=== PATIENT | male | born 1965 | race Caucasian/White ===

== ENCOUNTER 2018-11-05 11:39 | Inpatient (IN) | payer MEDICAID ==
[~2018-11-05] VITALS: Ht 175.3 cm; Wt 68.0 kg
[2018-11-05] MEDS ORDERED: QUET50TA PO (11:52)
[2018-11-05] MEDS ORDERED: GABA-531 PO (11:52)
[2018-11-05] MEDS ORDERED: SODIUM CHLORIDE 0.9% 1,000 ML IV ONE (13:09)
[2018-11-05] MEDS ORDERED: LORAZEPAM 2MG/ML CPJ IV STA (13:09)
[2018-11-05 13:26] LABS: BASOPHILS % 0.4 % (0.0-2.0); EOSINOPHILS % 1.2 % (0.0-5.0); HEMATOCRIT. 41.1 % (42.0-52.0); LYMPHOCYTES % 22.8 % (20.0-50.0); MEAN CORPUSCULAR HEMOGLOBIN 32.4 pg (28.0-32.0); MEAN CORPUSCULAR VOLUME 95.2 fL (80.0-94.0); MEAN PLATELET VOLUME 8.5 fl (7.4-10.4); NEUTROPHILS % 61.6 % (40.0-76.0); PLATELET 150 x1000/uL (130-400); RED BLOOD CELL COUNT 4.32 mill/uL (4.7-6.1); RED CELL DISTRIBUTION WIDTH 13.4 % (11.6-14.6)
[2018-11-05 13:32] LABS: CHLORIDE 105 mEq/L (98-107)
[2018-11-05 13:36] LABS: ETHANOL BLOOD < 10 mg/dL
[2018-11-05 13:50] LABS: CLARITY URINE CLEAR (CLEAR); COLOR URINE YELLOW (YELLOW); KETONES URINE TRACE (NEGATIVE); LEUKOCYTE ESTERASE URINE TRACE (NEGATIVE); NITRITE URINE NEGATIVE (NEGATIVE); OCCULT BLOOD URINE NEGATIVE (NEGATIVE); PROTEIN URINE NEGATIVE (NEGATIVE); SPECIFIC GRAVITY URINE 1.024 (1.005-1.030)
[2018-11-05 14:13] LABS: *AMPHETAMINES SCREEN URINE NEGATIVE (NEGATIVE); *BARBITURATES SCREEN URINE NEGATIVE (NEGATIVE); *BENZODIAZEPINES SCREEN URINE NEGATIVE (NEGATIVE); *COCAINE SCREEN URINE NEGATIVE (NEGATIVE); METHADONE URINE SCREEN NEGATIVE (NEGATIVE); OPIATES URINE SCREEN NEGATIVE (NEGATIVE)
[2018-11-05 14:14] LABS: CANNABINOID URINE SCREEN NEGATIVE (NEGATIVE); PHENCYCLIDINE URINE SCREEN NEGATIVE (NEGATIVE)
[2018-11-05] MEDS ORDERED: FOLIC ACID 1 MG, THIAMINE HCL 100 MG, MVI, ADULT NO.1 10 ML in DEXTROSE 5% WATER 1,000 ML IV ONE ×4 (14:45)
[2018-11-05] MEDS ORDERED: LORAZEPAM 2MG/ML CPJ IV ONE (14:45)
[2018-11-05] MEDS ORDERED: FOLIC ACID 1 MG, MVI, ADULT NO.1 10 ML in DEXTROSE 5% WATER 1,000 ML IV SCH ×3 (15:30)
[2018-11-05] MEDS ORDERED: THIAMINE HCL 100MG TABLET PO SCH (15:30)
[2018-11-05 20:30] VITALS: BP 115/68
[2018-11-05 22:09] VITALS: BP 127/98
[2018-11-05] MEDS ORDERED: AMOX1TAB16 PO (22:17)
[2018-11-05] MEDS ORDERED: LORAZEPAM 1MG TABLET PO NR (23:15)
[2018-11-05] MEDS ORDERED: ACETAMINOPHEN 325MG TABLET PO PRN (23:15)
[2018-11-06] VITALS: BP 109/64
[2018-11-06 04:00] VITALS: BP 116/66
[2018-11-06] MEDS: GABAPENTIN 400MG CAPSULE PO SCH ×3 (05:00→20:44)
[2018-11-06 07:15] LABS: BASOPHILS % 0.2 % (0.0-2.0); EOSINOPHILS % 3.6 % (0.0-5.0); HEMATOCRIT. 41.8 % (42.0-52.0); LYMPHOCYTES % 28.9 % (20.0-50.0); MEAN CORPUSCULAR VOLUME 95.8 fL (80.0-94.0); MEAN PLATELET VOLUME 8.8 fl (7.4-10.4); MONOCYTES % 12.5 % (2.0-8.0); NEUTROPHILS % 54.8 % (40.0-76.0); PLATELET 138 x1000/uL (130-400); RED BLOOD CELL COUNT 4.37 mill/uL (4.7-6.1); RED CELL DISTRIBUTION WIDTH 13.1 % (11.6-14.6)
[2018-11-06 08:00] VITALS: BP 111/68
[2018-11-06 08:02] LABS: CHLORIDE 106 mEq/L (98-107)
[2018-11-06] MEDS: AMOXICILLIN/POTASSIUM CLAVULANATE 875/125MG TAB PO SCH ×2 (08:36→20:45)
[2018-11-06] MEDS: FAMOTIDINE 20MG TABLET PO SCH ×2 (08:36→20:45)
[2018-11-06] MEDS: THIAMINE HCL 100MG TABLET PO SCH (08:37)
[2018-11-06] MEDS: FOLIC ACID 1MG TABLET PO SCH (08:37)
[2018-11-06] MEDS: MULTIVITAMINS,THER W-MINERALS TABLET PO SCH (08:37)
[2018-11-06] MEDS: QUETIAPINE FUMARATE 50MG TABLET PO SCH ×2 (08:37→20:45)
[2018-11-06 12:00] VITALS: BP 101/61
[2018-11-06] MEDS ORDERED: CYANOCOBALAMIN 1000MCG/ML VIAL IM NR (15:00)
[2018-11-06 16:00] VITALS: BP 100/65
[2018-11-06] MEDS: PRIMIDONE 50MG TABLET PO SCH (21:10)
[2018-11-06 22:11] VITALS: BP 100/56
[2018-11-07] VITALS: BP 121/42
[2018-11-07 04:00] VITALS: BP 104/68
[2018-11-07] MEDS: GABAPENTIN 400MG CAPSULE PO SCH ×2 (05:38→16:43)
[2018-11-07 08:52] LABS: FOLIC ACID (FOLATE) SERUM > 20.00 ng/mL (>5.38); VITAMIN B12 SERUM > 2000.0 pg/mL (211-911)
[2018-11-07] MEDS: AMOXICILLIN/POTASSIUM CLAVULANATE 875/125MG TAB PO SCH (09:17)
[2018-11-07] MEDS: PRIMIDONE 50MG TABLET PO SCH (09:17)
[2018-11-07] MEDS: MULTIVITAMINS,THER W-MINERALS TABLET PO SCH (09:18)
[2018-11-07] MEDS: FAMOTIDINE 20MG TABLET PO SCH (09:18)
[2018-11-07] MEDS: QUETIAPINE FUMARATE 50MG TABLET PO SCH (09:18)
[2018-11-07] MEDS: FOLIC ACID 1MG TABLET PO SCH (09:18)
[2018-11-07] MEDS: THIAMINE HCL 100MG TABLET PO SCH (09:18)
[2018-11-07 11:08] VITALS: BP 113/55
[2018-11-08 09:06] LABS: HIV SCREEN 4G Non Reactive (Non Reactive)
== END 2018-11-07 17:31 | DRG 58 ==
LOC: ER 11:39 → 5WST 17:43 → EDBEDREQ 17:46 → CANRESERV 18:43 → ENRESERV 18:43
PROVIDERS: ADMIT Ophthalmology; ATTEND Ophthalmology
DX: G25.2 Other specified forms of tremor (principal); F10.10 Alcohol abuse, uncomplicated; G25.5 Other chorea; Z88.9 Allergy status to unspecified drugs, medicaments and biological substances; F17.200 Nicotine dependence, unspecified, uncomplicated; R27.0 Ataxia, unspecified
CPT/HCPCS: 36415; 71045; 80305; 82140; 82390; 82607; 82746; 84443; 84484; 87389; 93005; 96365; 96375; 97112; 97162; 99291; G0482; J2060; J3411; J3420; J3490; J7030; J7070

== ENCOUNTER 2019-04-09 21:17 | Emergency (ER) | payer MEDICAID ==
[~2019-04-09] VITALS: Ht 175.3 cm; Wt 81.0 kg
[~2019-04-09 21:17] MED LIST: AMOX1TAB16 PO; GABA-531 PO; QUET50TA PO
[2019-04-09] MEDS ORDERED: ACETAMINOPHEN 650MG/20.3ML UDC PO ONE (23:45)
[2019-04-10 02:00] VITALS: BP 99/60
== END 2019-04-10 02:11 | disposition home or self-care (01) ==
LOC: ER 23:38
DX: S01.411A Laceration without foreign body of right cheek and temporomandibular area, initial encounter (principal); F12.10 Cannabis abuse, uncomplicated; Z79.899 Other long term (current) drug therapy; Z88.6 Allergy status to analgesic agent; Z88.5 Allergy status to narcotic agent; Y04.0XXA Assault by unarmed brawl or fight, initial encounter; Y93.89 Activity, other specified; Y92.89 Other specified places as the place of occurrence of the external cause; Y99.8 Other external cause status
CPT/HCPCS: 70450; 70486; 99284; Z7610